=== PATIENT | male | born 1960 | race Caucasian/White ===

== ENCOUNTER 2023-07-30 10:44 | Day surgery (SDC) | payer OTHER, MEDICARE ==
[2023-07-26 13:29] VITALS: BMI 49.5
[2023-07-30] MEDS: LACTATED RINGERS 1,000 ML IV SCH (12:34)
[2023-07-30] MEDS ORDERED: PROPOFOL 10 MG/ML 20 ML VIAL IV ONE (13:07)
[2023-07-30 13:23] VITALS: RESP 18; TEMP 97
--- NOTE | 2023-07-30 13:30 | P.PCN ---
Date of Procedure: 07/30/23 Procedure(s) Performed: BRIEF HISTORY: Patient is a 62-year-old pleasant white male scheduled for an elective colonoscopy as a part of send for colon cancer and family history of colon cancer. His brother was diagnosed with colon cancer at age 48. PROCEDURE PERFORMED: Colonoscopy. PREOPERATIVE DIAGNOSIS: Screening for colon cancer/family history of colon cancer. IV sedation per Anesthesia. PROCEDURE: After informed consent was obtained, the patient, was brought into the endoscopy unit. IV sedation was administered by Anesthesia under continuous monitoring. Digital rectal examination was normal. Initially the Olympus CF-160 flexible video colonoscope was then inserted in the rectum, gradually advanced into the cecum without any difficulty. Careful examination was performed as the scope was gradually being withdrawn. Ileocecal valve and the appendiceal orifice were visualized and appeared normal. Prep was excellent. Mucosa of the cecum, ascending colon, transverse colon, descending colon, sigmoid colon, and rectum appeared normal. Retroflexion was performed in the rectum and no lesions were seen. The patient tolerated the procedure well. IMPRESSION: Normal-appearing colon from rectum to cecum with no evidence of colorectal neoplasia Moderate sigmoid diverticulosis. RECOMMENDATIONS: Findings of this examination were discussed with the patient as well as his family. He was advised to have repeat screening colonoscopy every 5 years because of a family history of colon cancer.
[2023-07-30 14:21] VITALS: BP 121/74; PULSE 81
== END 2023-07-30 14:29 | disposition home or self-care (01) ==
LOC: ORWHC2ENDO 10:44
PROVIDERS: ATTEND Internal Medicine Gastroenterology
DX: Z12.11 Encounter for screening for malignant neoplasm of colon (principal); I10 Essential (primary) hypertension; E78.5 Hyperlipidemia, unspecified; G47.33 Obstructive sleep apnea (adult) (pediatric); M19.90 Unspecified osteoarthritis, unspecified site; E66.9 Obesity, unspecified; Z68.42 Body mass index [BMI] 45.0-49.9, adult; Z80.0 Family history of malignant neoplasm of digestive organs; Z79.899 Other long term (current) drug therapy; Z98.890 Other specified postprocedural states
CPT/HCPCS: 45378; J2704

== ENCOUNTER 2024-03-09 06:46 | Day surgery (SDC) | payer OTHER, MEDICARE ==
[2024-03-06 09:58] VITALS: BMI 49.5
[~2024-03-09 06:46] MED LIST: LIDOCAINE 1% (10MG/ML) FOR IV START INTRADERMA PRN
[2024-03-09 07:23] VITALS: TEMP 96
[2024-03-09] MEDS: LACTATED RINGERS 1,000 ML IV SCH (07:35)
[2024-03-09] MEDS ORDERED: PROPOFOL 10 MG/ML 20 ML VIAL IV ONE (07:46)
[2024-03-09] MEDS ORDERED: LIDOCAINE 1% INJ 10MG/ML (20 ML MDV) ONE (07:46)
--- NOTE | 2024-03-09 08:02 | P.PCN ---
Date of Procedure: 03/09/24 Procedure(s) Performed: BRIEF HISTORY: Patient is a 61-year-old, pleasant, white male scheduled upper endoscopy as a part evaluation of iron deficiency anemia.. He was recently diagnosed with the in January of this year and was started was started on Eliquis also on Mobic for arthritis. He had black tarry stools for 2 days in the beginning of February that spontaneously resolved.. Last colonoscopy in July of this year was unremarkable. PROCEDURE PERFORMED: Esophagogastroduodenoscopy with biopsy. PREOPERATIVE DIAGNOSIS: Iron deficiency anemia. IV sedation per anesthesia. PROCEDURE: After informed consent was obtained, the patient was brought into the endoscopy unit. IV sedation was administered by Anesthesia under continuous monitoring. Initially the Olympus GIF-140 video endoscope was inserted into the mouth. Esophagus intubated without any difficulty. It was gradually advanced into the stomach and duodenum and carefully examined. The bulb and the second part of the duodenum appeared normal. Biopsies were done from the duodenum rule out celiac disease. The scope at this time was withdrawn to the stomach, adequately insufflated with air, and upon careful examination, mucosa of the antrum, proximal body had scattered erosions and biopsies were done from this area. Cardia and the fundus appeared normal. The scope was then withdrawn into the esophagus. Hiatal hernia noted. The GE junction was located at 39 cm from the incisors. The esophagus appeared normal. There were no erosions or ulcerations seen and the patient tolerated the procedure well. IMPRESSION: 1. Scattered erosions in the antrum and gastric body status post biopsies. 2. No evidence of peptic ulcer disease 3. Small hiatal hernia. RECOMMENDATIONS: The findings of this examination were discussed with the patient as well as his family. He was advised to follow-up with the biopsy results.. Resume Eliquis today. Start omeprazole 20 mg daily for erosive gastritis and in the meantime advised to avoid NSAIDs including Mobic.
[2024-03-09 08:07] VITALS: RESP 18
[2024-03-09 08:39] VITALS: BP 145/78; PULSE 84
== END 2024-03-09 09:12 | disposition home or self-care (01) ==
LOC: ORWHC2ENDO 06:46
PROVIDERS: ATTEND Internal Medicine Gastroenterology
DX: D50.9 Iron deficiency anemia, unspecified (principal); K29.50 Unspecified chronic gastritis without bleeding; K25.9 Gastric ulcer, unspecified as acute or chronic, without hemorrhage or perforation; K44.9 Diaphragmatic hernia without obstruction or gangrene; E78.5 Hyperlipidemia, unspecified; I10 Essential (primary) hypertension; G47.33 Obstructive sleep apnea (adult) (pediatric); M19.90 Unspecified osteoarthritis, unspecified site; K21.9 Gastro-esophageal reflux disease without esophagitis; Z79.01 Long term (current) use of anticoagulants; Z79.899 Other long term (current) drug therapy; Z86.711 Personal history of pulmonary embolism; Z86.718 Personal history of other venous thrombosis and embolism
CPT/HCPCS: 43239; J2003; J2704; 88305